=== PATIENT | female | born 1950 | race African-American/Black ===

== ENCOUNTER 2022-11-18 08:28 | Emergency (ER) | payer OTHER, MEDICARE ==
--- OUTSIDE RECORDS SUMMARY | 2022-11-18 08:31 | XMS REPORT | Continuity of Care Document ---
:1950 Author Organization [facility] t Address [address] [place] [address] Care Team Providers Name Role Phone Reid Frye MD Primary Care Physician Ana Luisa Christie Attending Clinician Unavailable RADIOLOGY Attending Clinician Unavailable Radiology Attending Clinician Unavailable Davey Marie Attending Clinician Unavailable Lorenzo MCNULTY, Everett Gilliland Attending Clinician Ana Luisa Christie Admitting Clinician Unavailable JOMAR CONRAD Admitting Clinician Unavailable Physician, No Primary or Family Admitting Clinician UnavailANA LUISA Ponce Admitting Clinician Unavailable Payers Payer Name Policy Type Policy Number Effective Date Expiration Date S ource MEDICARE PART A \T\ [id number] 2014 B 00:00:00 [facility] [id number] 2018 MEDICARE SUPPLEMENT 00:00:00 Problems Condition Condition Condition Status Onset Resolution Last Treating Co mments Source Name Details Category Date Date Treatment Clinician Date Abdominal Abdominal Disease Active 2017-06 [facility] pain pain 0 [facility] 00:00: Hospita 00 l Acute Acute Disease Active 2018-1 Methodi cholecysti cholecysti 0-29 st tis tis 00:00: Hospita 00 l Allergies, Adverse Reactions, Alerts Allergy Allergy Status Severity Reaction(s) Onset Inactive Treating Comm ents Source Name Type Date Date Clinician hydrocod DA Active [facility] VOMITING [facility] one 4-19 Clear 00:00: Johnson 00 [facility] No Known DA Active U 2013-06 [facility] Allergie 07-05 Clear s 00:00: Johnson 00 [facility] NO KNOWN Drug Active Univers ALLERGIE Class ity of S [facility] Social History Social Habit Start Date Stop Date Quantity Comments Source Gender identity [facility] Sexual orientation [facility] History of Social 2022-09-14 2022-09-[address] function 00:00:00 00:00:00 Hospital Alcohol intake 2021-05-03 2021-05-03 Current drinker [facility]o dist 00:00:00 00:00:00 of [facility] (finding) Tobacco use and 2018-04-08 2018-04-08 Smokeless [facility] 00:00:00 00:00:00 tobacco non-user Hospital Sex Assigned At [birth year] [facility] 00:00:00 00:[facility]:00 Hospital Smoking Status Start Date Stop Date Source Tobacco smoking consumption [facility] Never smoked tobacco [facility] Medications Ordered Filled Start Stop Current Ordering Indication Dosage Frequency Signature Comments Components Source Medication Medication Date Date Medication? Clinician (SIG) Name Name naproxen 2020-06 No 500mg Q.5D Take 1 Metho di (NAPROSYN) 07-[address] 500 MG 00:00: 05:59 (500 mg Hospita tablet 00 :00 total) by l mouth 2 (two) times a day with meals for 30 doses. naproxen 2020-06 No 500mg Q.5D Take 1 Metho di (NAPROSYN) 07-[address] 500 MG 00:00: 05:59 (500 mg Hospita tablet 00 :00 total) by l mouth 2 (two) times a day with meals for 30 doses. predniSONE 2017-06 Yes 3mg QD Take 3 mg Me [facility]odi (DELTASONE) 06-[address] 5 mg tablet 12:05: daily. Hosp jah 27 l hydroxychlo 2017-06 Yes 400mg QD Take 400 M ethodi roquine 1-[address] (PLAQUENIL) 12:05: mouth Hospi ta 200 mg 27 daily. l tablet ergocalcife 2017-06 Yes [id number] Q7D Take Meth naina rol 1-05 50,000 [address] (VITAMIN 12:05: Units by Hospi ta D2) 50,000 27 mouth once l unit a week. capsule metFORMIN 2017-06 Yes 1000mg QD Take 1,000 Methodi (GLUCOPHAGE 1-[address] ) 1,000 mg 12:05: mouth Hospit a tablet 27 daily with l breakfast. inFLIXimab 2017-06 Yes Infuse Metho di (REMICADE) 1-[address] 100 mg 12:05: venous Hospita injection 27 catheter. l Every 8 week had on 03/28/2018 predniSONE 2017-06 Yes 3mg QD Take 3 mg Me thodi (DELTASONE) 1-[address] 5 mg tablet 12:05: daily. Hosp jah 27 l hydroxychlo 2017-06 Yes 400mg QD Take 400 M ethodi roquine 1-[address] (PLAQUENIL) 12:05: mouth Hospi ta 200 mg 27 daily. l tablet ergocalcife 2017-06 Yes [id number] Q7D Take Meth naina rol 1-05 50,000 st (VITAMIN 12:05: Units by Hospi ta D2) 50,000 27 mouth once l unit a week. capsule metFORMIN 2017-06 Yes 1000mg QD Take 1,000 Methodi (GLUCOPHAGE 1-[address] ) 1,000 mg 12:05: mouth Hospit a tablet 27 daily with l breakfast. inFLIXimab 2017-06 Yes Infuse Metho di (REMICADE) 1-[address] 100 mg 12:05: venous Hospita injection 27 catheter. l Every 8 week had on 03/28/2018 predniSONE 2017-06 Yes 3mg QD Take 3 mg Me thodi (DELTASONE) 1-[address] 5 mg tablet 12:05: daily. Hosp jah 27 l hydroxychlo 2017-06 Yes 400mg QD Take 400 M ethodi roquine 1-[address] (PLAQUENIL) 12:05: mouth Hospi ta 200 mg 27 daily. l tablet ergocalcife 2017-06 Yes [id number] Q7D Take Meth naina rol 1-05 50,000 st (VITAMIN 12:05: Units by Hospi ta D2) 50,000 27 mouth once l unit a week. capsule metFORMIN 2017-06 Yes 1000mg QD Take 1,000 Methodi (GLUCOPHAGE 1-[address] ) 1,000 mg 12:05: mouth Hospit a tablet 27 daily with l breakfast. inFLIXimab 2017-06 Yes Infuse Metho di (REMICADE) 1-[address] 100 mg 12:05: venous Hospita injection 27 catheter. l Every 8 week had on 03/28/2018 predniSONE 2017-06 Yes 3mg QD Take 3 mg Me thodi (DELTASONE) 1-[address] 5 mg tablet 12:05: daily. Hosp jah 27 l hydroxychlo 2017-06 Yes 400mg QD Take 400 M ethodi roquine 1-[address] (PLAQUENIL) 12:05: mouth Hospi ta 200 mg 27 daily. l tablet ergocalcife 2017-06 Yes [id number] Q7D Take Meth naina rol 1-05 50,000 st (VITAMIN 12:05: Units by Hospi ta D2) 50,000 27 mouth once l unit a week. capsule metFORMIN 2017-06 Yes 1000mg QD Take 1,000 Methodi (GLUCOPHAGE 1-[address] ) 1,000 mg 12:05: mouth Hospit a tablet 27 daily with l breakfast. inFLIXimab 2017-06 Yes Infuse Metho di (REMICADE) 1-[address] 100 mg 12:05: venous Hospita injection 27 catheter. l Every 8 week had on 03/28/2018 predniSONE 2017-06 Yes 3mg QD Take 3 mg Me thodi (DELTASONE) 1-[address] 5 mg tablet 12:05: daily. Hosp jah 27 l hydroxychlo 2017-06 Yes 400mg QD Take 400 M ethodi roquine 1-[address] (PLAQUENIL) 12:05: mouth Hospi ta 200 mg 27 daily. l tablet ergocalcife 2017-06 Yes [id number] Q7D Take Meth naina rol 1-05 50,000 st (VITAMIN 12:05: Units by Hospi ta D2) 50,000 27 mouth once l unit a week. capsule metFORMIN 2017-06 Yes 1000mg QD Take 1,000 Methodi (GLUCOPHAGE 1-[address] ) 1,000 mg 12:05: mouth Hospit a tablet 27 daily with l breakfast. inFLIXimab 2017-06 Yes Infuse Metho di (REMICADE) 1-[address] 100 mg 12:05: venous Hospita injection 27 catheter. l Every 8 week had on 03/28/2018 predniSONE 2017-06 Yes 3mg QD Take 3 mg Me thodi (DELTASONE) 1-[address] 5 mg tablet 12:05: daily. Hosp jah 27 l hydroxychlo 2017-06 Yes 400mg QD Take 400 M ethodi roquine 1-[address] (PLAQUENIL) 12:05: mouth Hospi ta 200 mg 27 daily. l tablet ergocalcife 2017-06 Yes [id number] Q7D Take Meth naina rol 1-05 50,000 st (VITAMIN 12:05: Units by Hospi ta D2) 50,000 27 mouth once l unit a week. capsule metFORMIN 2017-06 Yes 1000mg QD Take 1,000 Methodi (GLUCOPHAGE 1-[address] ) 1,000 mg 12:05: mouth Hospit a tablet 27 daily with l breakfast. inFLIXimab 2017-06 Yes Infuse Metho di (REMICADE) 1-[address] 100 mg 12:05: venous Hospita injection 27 catheter. l Every 8 week had on 03/28/2018 pioglitazon 2017-06 Yes TK 1 T PO M ethodi e (ACTOS) 0-[address] 15 MG 00:00: Hospita tablet 00 l pioglitazon 2017-06 Yes TK 1 T PO M ethodi e (ACTOS) 0-[address] 15 MG 00:00: Hospita tablet 00 l pioglitazon 2017-06 Yes TK 1 T PO M ethodi e (ACTOS) 0-[address] 15 MG 00:00: Hospita tablet 00 l pioglitazon 2017-06 Yes TK 1 T PO M ethodi e (ACTOS) 0-[address] 15 MG 00:00: Hospita tablet 00 l pioglitazon 2017-06 Yes TK 1 T PO M ethodi e (ACTOS) 0-[address] 15 MG 00:00: Hospita tablet 00 l pioglitazon 2017-06 Yes TK 1 T PO M ethodi e (ACTOS) 0-[address] 15 MG 00:00: Hospita tablet 00 l hydroCHLORO 2017- Yes TK 1 T PO M ethodi thiazide 0-[address] (HYDRODIURI 00:00: Hospit a L) 25 MG 00 l tablet hydroCHLORO 2017- Yes TK 1 T PO M ethodi thiazide 0-[address] (HYDRODIURI 00:00: Hospit a L) 25 MG 00 l tablet hydroCHLORO 2017- Yes TK 1 T PO M ethodi thiazide 0-[address] (HYDRODIURI 00:00: Hospit a L) 25 MG 00 l tablet hydroCHLORO 2017- Yes TK 1 T PO M ethodi thiazide 0-[address] (HYDRODIURI 00:00: Hospit a L) 25 MG 00 l tablet hydroCHLORO 2017-06 Yes TK 1 T PO M ethodi thiazide 0-[address] (HYDRODIURI 00:00: Hospit a L) 25 MG 00 l tablet hydroCHLORO 2017-06 Yes TK 1 T PO M ethodi thiazide 0-[address] (HYDRODIURI 00:00: Hospit a L) 25 MG 00 l tablet amLODIPine 2017-0 Yes TK 1 T PO Me thodi (NORVASC) - ONCE A DAY st 10 mg 00:00: Hospita tablet 00 l amLODIPine 0 Yes TK 1 T PO Me thodi (NORVASC) - ONCE A DAY st 10 mg 00:00: Hospita tablet 00 l amLODIPine 0 Yes TK 1 T PO Me thodi (NORVASC) 9- ONCE A DAY st 10 mg 00:00: Hospita tablet 00 l amLODIPine 0 Yes TK 1 T PO Me thodi (NORVASC) 9-[address] 10 mg 00:00: Hospita tablet 00 l amLODIPine 0 Yes TK 1 T PO Me thodi (NORVASC) 9- ONCE A DAY st 10 mg 00:00: Hospita tablet 00 l amLODIPine 0 Yes TK 1 T PO Me thodi (NORVASC) - ONCE A DAY st 10 mg 00:00: Hospita tablet 00 l valsartan 0 Yes TK 1 T PO Met hodi (DIOVAN) 9-[address] 160 MG 00:00: Hospita tablet 00 l valsartan 2018-0 Yes TK 1 T PO Met hodi (DIOVAN) 02-[address] 160 MG 00:00: Hospita tablet 00 l valsartan Yes TK 1 T PO Met hodi (DIOVAN) 02-[address] 160 MG 00:00: Hospita tablet 00 l valsartan Yes TK 1 T PO Met hodi (DIOVAN) 02-[address] 160 MG 00:00: Hospita tablet 00 l valsartan Yes TK 1 T PO Met hodi (DIOVAN) 02-[address] 160 MG 00:00: Hospita tablet 00 l valsartan Yes TK 1 T PO Met hodi (DIOVAN) 02-[address] 160 MG 00:00: Hospita tablet 00 l Vital Signs Vital Name Observation Time Observation Value Comments Source Systolic blood 2021-05-04 01:45:00 134 mm[Hg] [facility] pressure Diastolic blood 2021-05-04 01:45:00 65 mm[Hg] [facility] pressure Heart rate 2021-05-04 01:45:00 80 /min [facility] Respiratory rate 2021-05-04 01:45:00 18 /min [facility] Oxygen saturation in 2021-05-04 01:45:00 98 /[facility] Arterial blood by Pulse oximetry Body temperature 2021-05-04 01:11:[address] [facility] Body height 2021-05-04 01:11:[address] [facility] Body weight 2021-05-04 01:11:[address] [facility] BMI 2021-05-04 01:11:00 33.07 kg/m2 [facility] Procedures Procedure Date / Time Performed Performing Clinician [facility] e ASSIGNMENT OF BENEFITS 2022-02-14 18:17:01 Doctor Unassigned, No [facility] XR HIP 2-3 VIEWS LEFT 2021-05-04 01:41:32 Everett Ventura Met [facility] Plan of Care Planned Activity Planned Date Details Comments Source Future Scheduled 2022-11-15 [facility] for [facility] Test 20:53:40 malignant neoplasm of colon (procedure) [code = 703194650] Future Scheduled 2022-11-15 [facility] Test 20:53:40 malignant neoplasm of colon (procedure) [code = 040374592] Future Scheduled 2022-11-15 [facility] Test 20:53:40 malignant neoplasm of colon (procedure) [code = 099081767] Future Scheduled 2022-11-15 Hepatitis C screening [facility] Test 20:53:40 (procedure) [code = 466034309] Future Scheduled 2022-11-15 [facility] Test 20:53:40 SCREENING [code = BREAST CANCER SCREENING] Future Scheduled 2022-11-15 [facility] Test 20:53:40 malignant neoplasm of colon (procedure) [code = 628602825] Future Scheduled 2022-11-15 [facility] for [facility] Test 20:53:40 malignant neoplasm of colon (procedure) [code = 205883717] Future Scheduled 2022-11-15 [facility]IN[facility] Test 20:53:40 of 2) [code = SHINGLES VACCINES (1 of 2)] Future Scheduled 2022-11-15 65+ [facility]CCAL [facility] 20:53:40 VACCINE (1 - PCV) [code = 65+ PNEUMOCOCCAL VACCINE (1 - PCV)] Future Scheduled 2022-11-15 COVID-19 VACCINE (4 - [facility] Test 20:53:40 Moderna series) [code = COVID-19 VACCINE (4 - Moderna series)] Future Scheduled 2022-11-15 INFLUENZA VACCINE [facility] Test 20:53:40 [code = INFLUENZA VACCINE] Future Scheduled 2022-11-15 [facility] Test 20:53:40 malignant neoplasm of colon (procedure) [code = 006682583] Future Scheduled 2022-11-15 [facility] Test 20:53:40 malignant neoplasm of colon (procedure) [code = 452018771] Future Scheduled 2022-11-15 [facility] Test 20:53:40 malignant neoplasm of colon (procedure) [code = 471418909] Future Scheduled 2022-11-15 Hepatitis C screening [facility] Test 20:53:40 (procedure) [code = 563554608] Future Scheduled 2022-11-15 [facility] Test 20:53:40 SCREENING [code = BREAST CANCER SCREENING] Future Scheduled 2022-11-15 [facility] Test 20:53:40 malignant neoplasm of colon (procedure) [code = 538704863] Future Scheduled 2022-11-15 [facility] for [facility] Test 20:53:40 malignant neoplasm of colon (procedure) [code = 426038379] Future Scheduled 2022-11-15 SHINGLES VACCINES (1 Met [facility] Hospital Test 20:53:40 of 2) [code = SHINGLES VACCINES (1 of 2)] Future Scheduled 2022-11-15 65+ [facility] VACCINE (1 - PCV) [code = 65+ PNEUMOCOCCAL VACCINE (1 - PCV)] Future Scheduled 2022-11-15 COVID-19 VACCINE (4 - [facility] Test 20:53:40 Moderna series) [code = COVID-19 VACCINE (4 - Moderna series)] Future Scheduled 2022-11-15 INFLUENZA VACCINE [facility] Test 20:53:40 [code = INFLUENZA VACCINE] Future Scheduled 2022-05-25 Hepatitis C screening [facility] Test 06:08:43 (procedure) [code = 414567589] Future Scheduled 2022-05-25 [facility] Test 06:08:43 SCREENING [code = BREAST CANCER SCREENING] Future Scheduled 2022-05-25 COLONOSCOPY SCREENING [facility] Test 06:08:43 [code = COLONOSCOPY SCREENING] Future Scheduled 2022-05-25 SHINGLES VACCINES (1 Met [facility] Test 06:08:43 of 2) [code = SHINGLES VACCINES (1 of 2)] Future Scheduled 2022-05-25 65+ PNEUMOCOCCAL [facility] Hospital Test 06:08:43 VACCINE (1 - PCV) [code = 65+ PNEUMOCOCCAL VACCINE (1 - PCV)] Future Scheduled 2022-05-25 COVID-19 VACCINE (4 - Me [facility] Hospital Test 06:08:43 Booster for Moderna series) [code = COVID-19 VACCINE (4 - Booster for Moderna series)] Future Scheduled 2022-05-25 INFLUENZA VACCINE Method [facility] Hospital Test 06:08:43 [code = INFLUENZA VACCINE] Future Scheduled 2022-05-25 Hepatitis C screening [facility] Test 06:08:43 (procedure) [code = 793066107] Future Scheduled 2022-05-25 BREAST CANCER [facility] Test 06:08:43 SCREENING [code = BREAST CANCER SCREENING] Future Scheduled 2022-05-25 COLONOSCOPY SCREENING [facility] Test 06:08:43 [code = COLONOSCOPY SCREENING] Future Scheduled 2022-05-25 [facility]IN[facility] 06:08:43 of 2) [code = SHINGLES VACCINES (1 of 2)] Future Scheduled 2022-05-25 65+ PNEUMOCOCCAL [facility] Hospital Test 06:08:43 VACCINE (1 - PCV) [code = 65+ PNEUMOCOCCAL VACCINE (1 - PCV)] Future Scheduled 2022-05-25 COVID-19 VACCINE (4 - Me [facility] Hospital Test 06:08:43 Booster for Moderna series) [code = COVID-19 VACCINE (4 - Booster for Moderna series)] Future Scheduled 2022-05-25 INFLUENZA VACCINE Method is Hospital Test 06:08:43 [code = INFLUENZA VACCINE] Future Scheduled 2021-05-31 Hepatitis C screening [facility] Test 13:28:38 (procedure) [code = 486238505] Future Scheduled 2021-05-31 [facility] Test 13:28:38 SCREENING [code = BREAST CANCER SCREENING] Future Scheduled 2021-05-31 COLONOSCOPY SCREENING [facility] Test 13:28:38 [code = COLONOSCOPY SCREENING] Future Scheduled 2021-05-31 SHINGLES [facility]ACCINES (#[facility] Test 13:28:38 [code = SHINGLES VACCINES (#1)] Future Scheduled 2021-05-31 65+ PNEUMOCOCCAL [facility] Hospital Test 13:28:38 VACCINE (1 of 1 - PPSV23) [code = 65+ PNEUMOCOCCAL VACCINE (1 of 1 - PPSV23)] Future Scheduled 2021-05-31 INFLUENZA VACCINE Method is Hospital Test 13:28:38 [code = INFLUENZA VACCINE] Future Scheduled 2021-05-31 Hepatitis C screening [facility] Test 13:28:38 (procedure) [code = 727953678] Future Scheduled 2021-05-31 [facility] 13:28:38 SCREENING [code = BREAST CANCER SCREENING] Future Scheduled 2021-05-31 COLONOSCOPY SCREENING [facility] Test 13:28:38 [code = COLONOSCOPY SCREENING] Future Scheduled 2021-05-31 SHINGLES VACCINES (#1) [facility] Test 13:28:38 [code = SHINGLES VACCINES (#1)] Future Scheduled 2021-05-31 65+ PNEUMOCOCCAL [facility] Hospital Test 13:28:38 VACCINE (1 of 1 - PPSV23) [code = 65+ PNEUMOCOCCAL VACCINE (1 of 1 - PPSV23)] Future Scheduled 2021-05-31 INFLUENZA VACCINE Method ist Hospital Test 13:28:38 [code = INFLUENZA VACCINE] Encounters Start End Encounter Admission Attending Care Care Encounter Source Date/Time Date/Time Type Type Clinicians Facility Department ID 2022-11-16 2022-11-16 Outpatient AVELINO VarelaCL RADI [id number] [facility] 10:09:00 10:09:00 Ana Luisa 31 [facility] 2022-09-07 2022-09-07 Outpatient AVELINO VarelaCL RADI [id number] [facility] 10:24:00 10:24:00 Declan 71 [facility] 2022-08-09 2022-08-09 Outpatient SFA SFA [id number] Taj 11:28:58 11:28:58 0301 F Prashant 2022-02-14 2022-02-14 Outpatient R RADIOLOGY [facility] [id number] Univers 13:17:22 23:59:00 ity [facility] 2022-02-14 2022-02-14 Hospital Radiology [facility] [id number] Univers 13:17:22 23:59:00 [facility] 350.1.13.10 ity [facility] 4.2.7.2.686 [facility] [id number] [place] [address] Branch 2021-09-27 2021-09-27 Emergency EM White[facility] [id number] [facility] 14:16:00 15:12:00 Davey Alcocer [facility] 2021-05-03 2021-05-03 Emergency Lorenzo, 1.2.840.1 [id number] Methodi 18:59:00 20:23:00 Everett Gilliland [address] 3.430.2.7 Hospit a .3.940363 l .8 2021-05-03 2021-05-03 Travel 1.2.840.1 [id number] [id number] Methodi 00:00:00 00:00:[address] 3.430.2.7 0.2.7.3.698 spita .3.053121 084.8 l .8 2021-02-01 2021-02-01 Outpatient FBCOVID FBCOVID [id number] F[facility]OVID 00:00:00 00:00:00 [id number] 2020-10-26 Outpatient MEGHAN Rivas [facility] [id number] [facility] 21:31:36 21:31:36 Declan Alcocer [facility] 2019-08-19 2019-08-19 Outpatient R RADIOLOGY [facility] [id number] Univers 11:14:53 23:59:00 [facility] Results Test Description Test Time Test Comments Results Result Sour e Comments - XR CHEST 2 V 2022-11-16 10:39:00 [facility] : 1950 Sex: F FAX: Ana Luisa Pino MD [phone] [place]: GC St: REG Name: TAMIKO HAGERH Barry Johnson : 1950 Age/S: 72/F [address] [place] [address] Bl Unit #: [id number] Loc: [place] [address] Phys: Ana Luisa Christie MD Acct: [id number] Dis Date: Status: REG CLI PHONE #: [phone] Exam Date: 11/16/2022 1030 FAX #: [phone] Reason: Z11.1, TUBERCULOSIS SCREENING. RHEUMATOID ARTH EXAMS: CPT CODE: [id number] XR CHEST 2 V [id number] Dictation location: U19. CHEST, FRONTAL AND LATERAL VIEWS HISTORY: Z11.1, TUBERCULOSIS SCREENING. RHEUMATOID ARTHRITIS WITH COMPARISON: Chest x-ray 03/14/16. FINDINGS: The lungs are clear without consolidation. No pleural effusion or pneumothorax. The heart size is normal. Mild thoracic spondylosis. IMPRESSION: No evidence of acute cardiopulmonary disease or tuberculosis. at 1039 Reported and signed by: Gilda Mccormick M.D. CC: Declan Christie MD Technologist: Fabiola Nam RT(R) Trnscrd Date/Time/By: 11/16/2022 (1039) : By: [email or web address] Orig Print D/T: S: 11/16/2022 (1113) PAGE 1 Signed Report - XR ANKLE 3 + V 2022-09-07 23:55:00 [facility] J[facility]NSON[facility]: TAMIKO MCARTHUR : 1950 Sex: F FAX: Declan Pino MD [phone] [place]: St: REG Name: CRISTINA MCARTHUR [facility] : 1950 Age/S: 72/F [address] [place] [address] Unit #: [id number] Loc: [place] [address] Phys: Declan Christie MD Acct: [id number] Dis Date: Status: REG CLI PHONE #: [phone] Exam Date: 09/07/20221106 FAX #: [phone] Reason: M25.572, M25.571, RIGHT, LEFT ANKLE PAIN. EXAMS: CPT CODE: [id number] XR ANKLE 3 + [place] [address] EXAM: - XR ANKLE 3 + V BI CLINICAL HISTORY: M25.572, M25.571, RIGHT, LEFT ANKLE PAIN. COMPARISON: None available. TECHNIQUE: Bilateral AP, oblique, and lateral views. LOCATION: H65 FINDINGS: RIGHT Bones: No acute displaced fracture or dislocation identified. Normal marrow density. Joint spaces: Ankle mortise is grossly intact. Midfoot articulations demonstrate dorsal osteophyte formation as detailed on dedicated foot radiographs. Soft tissues: Mild generalized soft tissue swelling surrounding the ankle joint. LEFT Bones: No acute displaced fracture or dislocation identified. Normal marrow density. Joint spaces: Ankle mortise is grossly intact. Midfoot articulations demonstrate dorsal osteophyte formation as detailed on dedicated foot radiographs. Soft tissues: Mild generalized soft tissue swelling surrounding the ankle joint. IMPRESSION: No significant degenerative or erosive changes of the ankle mortise, which appear well aligned bilaterally. Mild bilateral generalized soft tissue swelling noted. Bilateral midfoot polyarticular osteoarthritis, worse on the right. This is detailed on the dedicated foot radiographs. PAGE 1 Signed Report (CONTINUED) FAX: Declan Pino MD [phone] [place]: St: REG Name: A[facility]CRISTINA [facility]Z [facility] Barry Johnson : 1950 Age/S: 72/F [address] [place] [address] Unit #: [id number] Loc: [place] [address] Phys: Declan Christie MD Acct: [id number] Dis Date: Status: REG CLI PHONE #: [phone] Exam Date: 09/07/2022 1107 FAX #: [phone] Reason: M25.572, M25.571, RIGHT, LEFT ANKLE PAIN. EXAMS: CPT CODE: [id number] XR ANKLE 3 + [place] [id number] (Continued) at 4828 Reported and signed by: Basil Marie D.O. CC: Declan Christie MD Technologist: RT Óscar(R) Trnscrd Date/Time/By: 09/07/2022 (6242) : By: [email or web address] Orig Print D/T: S: 09/07/2022 (0238) PAGE 2 Signed Report - XR FOOT 3 + V BI 2022-09-07 23:52:00 [facility] ALEXName: AGOSTO-MADANELISATAMIKO : 1950 Sex: F FAX: Declan Pino MD [phone] [place]: St: REG Name: CRISTINA MCARTHUR [facility] : 1950 Age/S: 72/F [address] [place] [address] Unit #: [id number] Loc: [place] [address] Phys: Declan Christie MD Acct: [id number] Dis Date: Status: REG CLI PHONE #: [phone] Exam Date: 09/07/20221107 FAX #: [phone] Reason: M79.671, M79.672, ALESHIA FOOT PAIN. EXAMS: CPT CODE: [id number] XR FOOT 3 + [place] [address] EXAM: - XR FOOT 3 + V BI CLINICAL HISTORY: M79.671, M79.672, ALESHIA FOOT PAIN. COMPARISON: None available. TECHNIQUE: Bilateral AP, oblique, and lateral views. LOCATION: H65 FINDINGS: RIGHT Bones: No acute displaced fracture or dislocation identified. Normal marrow density. Joint spaces: Hallux valgus deformity. There is mild joint space narrowing and minimal marginal osteophyte formation throughout the interphalangeal joints. No periarticular erosions. Dorsal osteophyte formation noted at the talonavicular, naviculocuneiform, and at the tarsometatarsal joints. Soft tissues: Unremarkable. LEFT Bones: No acute displaced fracture or dislocation identified. Normal marrow density. Joint spaces: Normal alignment. Mild joint space narrowing and marginal osteophyte formation throughout the interphalangeal joints. No periarticular erosions. Dorsal osteophyte formation noted at the naviculocuneiform and tarsometatarsal joints. Soft tissues: Unremarkable. IMPRESSION: Hallux valgus deformity on the right. Mild bilateral polyarticular osteoarthritis, worse on the right. PAGE 1 Signed Report (CONTINUED) FAX: Declan Pino MD [phone] [place]: St: REG Name: CRISTINA MCARTHUR [facility] : 1950 Age/S: 72/F [address] [place] [address] Bl Unit #: [id number] Loc: [place] [address] Phys: Declan Christie MD Acct: [id number] Dis Date: Status: REG CLI PHONE #: [phone] Exam Date: 09/07/2022 1108 FAX #: [phone] Reason: M79.671, M79.672, ALESHIA FOOT PAIN. EXAMS: CPT CODE: [id number] XR FOOT 3 [place] [id number] (Continued) at 2352 Reported and signed by: Basil Marie D.O. CC: Declan Christie MD Technologist: RT Óscar(R) Trnscrd Date/Time/By: 09/07/2022 (5672) : By: [email or web address] Orig Print D/T: S: 09/07/2022 (0531) PAGE 2 Signed Report HEMOGLOBIN A1c 2021-10-04 02:46:37 Test Item Value Reference Range Interpretation Comme nts HEMOGLOBIN A1c (test code = 6.7 % 4.2-5.6 H [employer] 11056) GUIDELINES FOR HGB A1C: PREDIABETES/INC REASED RISK . . . . . . . 5.7-6.4% DIAGNO SIS OF DIABETES . . . . . . . . . >=6.5% WITH CONFIRMATION OR APPROPRIATE SYM PTOMS NOTE: ASSAY MAY BE AFFECTED BY HEM OGLOBINOPATHIES (SICKLE CELL ANEMIA, S- C DISEASE, OTHERS) OR ARTIFICIALLY LO WERED BY DECREASED RED CELL SURVIVAL ( HEMOLYTIC ANEMIAS, BLOOD LOSS, ETC.). CO NSIDER ALTERNATE TESTING OR LABORATORY C ONSULTATION. UNLESS OTHERWISE INDIC ATED, ALL TESTING PERFORMED [facility]. [address] [place] [address] [facility] DIRECTOR: LADARIUS HOYT M.D. CLIA NUMBER [id number] [facility] [place] [id number] - XR CHEST 2 [id number] 22:10:00 [facility] : 1950 Sex: F FAX: Declan Pino MD [phone] [place]: St: REG Name: TAMIKO MCARTHUR [facility] : 1950 Age/S: 70/F [address] [place] [address] Unit #: [id number] Loc: [place] [address] Phys: Delcan Christie MD Acct: [id number] Dis Date: Status: REG CLI PHONE #: [phone] Exam Date: 10/26/20202158 FAX #: [phone] Reason: ENCOUNTER FOR SCREENING FOR RESPIRATORY TUBERCU EXAMS: CPT CODE: [id number] XR CHEST 2 V 32321 Chest, 2 views dated 10/26/2020. HISTORY: Screening for respiratory tuberculosis. No prior studies are available for comparison. The heart is normal in size. Atherosclerotic calcification is identified in the aortic arch. The lungs appear clear of acute disease. Evidence of prior granulomatous infection is noted. The pulmonary vasculature appears normal in caliber. No acute pleural space abnormalities are identified. Note is made of a compression deformity of the anterior superior endplate of L1. IMPRESSION: 1. No radiographic evidence of acute cardiopulmonary disease. SL:131 at 2210 Reported and signed by: Ez Garza M.D. CC: Declan Christie MD Technologist: RT Dorothy(R) Trnscrd Date/Time/By: 10/26/2020 (2209) : By: [email or web address] Orig Print D/T: S: 10/26/2020 (2213) PAGE 1 Signed Report Notes Date/Time Note Provider Source 2021-09-27 14:31:00-00:[address] [facility] [place] [place] ([facility]) EMERGENCY PROVIDER REPORT REPORT#:[id number] REPORT STATUS: Signed DATE:09/27/21 TIME: 1430 PATIENT: TAMIKO MCARTHUR UNIT #: [id number] ROOM/BED: AGE: 71 SEX: F PCP PHYS: Declan Christie MD SERVICE AUTHOR: Davey Marie MD * ALL edits or amendments must be made on the el [employer]/computer document * HPI-Rash/Abscess/Cellulitis General Confirmed Patient Yes Patient Type New patient Initial Greet Date/Time 09/27/21 1416 Presentation Chief Complaint Rash, Red area, Sore, Tender/swo llen area Hx Obtained From Patient Onset Occurred Days ago (3) Progression since Onset Gradually improving Location Head/face Quality Painful Severity: Onset Mild Severity: Current Mild Free Text HPI Notes Free Text HPI Notes 71-year-old female patient with past medical his tory as recorded in EMR ( rheumatoid arthritis, border line diabetes) reports to the freestanding emergency department complaining of 2 to 3 days of a painf ul tingling rash that erupted like blisters and are groupe d on the left cheek and face near the corner of the left eye. Patient denies any eye blurring or hannah n or soreness in the eye. Patient reports that she is not vaccinat ed for shingles. Denies fever, chills, chest pain, shortness of breath, vision changes. Review of Systems ROS Statements All systems rev neg except as marked. Focused Review of Systems Skin Reports: Rash. Past Medical History - Adult Stated Complaint RASH ON FACE Allergies Coded Allergies: hydrocodone (Mild, VOMITING 09/27/21) Past Medical History: Reports: Arthritis, Diabetes mellitus. Physical Exam Vital Signs Vital Signs First Documented: Result Date Time Pulse Ox 96 09/27 1420 B/P 152/87 09/27 1420 B/P Mean 108 09/27 1420 O2 Delivery Room air 09/27 1420 Temp 36.8 09/27 1420 Pulse 92 09/27 1420 Resp 20 09/27 1420 Last Documented: Result Date Time Pulse Ox 98 09/27 1508 B/P 148/87 09/27 1508 B/P Mean 107 09/27 1508 O2 Delivery Room air 09/27 1508 Pulse 89 09/27 1508 Resp 18 09/27 1508 Temp 36.8 09/27 1420 Review of Vital Signs Reviewed Focused PE General/Const General/Const Awake, Alert, Well appearing Ears/Nose/Throat Ears/Nose/Throat Airway patent, Mucous membrane s moist, Pharynx NL Resp/Chest Respiratory/Chest Atraumatic, No respiratory di stress Cardiovascular Cardiovascular Heart rate NL MS Upper Extrem Upper Extremity/MS Inspection NL, No swelling, Non-tender, No erythema MS Lower Extrem Lower Ext/Pelvis/MS Inspection NL, No swelling, Non-tender, No erythema, Vascular intact, No edema Skin Text/Dict Notes Patient has small excoriated grouped lesions on the left side of her face in the V2 distribution of the trigeminal nerve. These lesions do not appear to affect the eye. There is no signs o f secondary infection and no drainage at this time. All lesions appear advanced and healing at this time. Neurologic Neurologic Oriented X3, Speech NL, No motor def icits, No sensory deficits Re-Evaluation MDM ED Course Medication(s) Ordered Medication(s) Ordered: Anti-Infective Agents Sig/Ai Start time Last Medication Dose Route Stop Time Status Admin Valacyclovir HCl 1,000 MG X1ED STA 09/27 1430 DC 09/27 PO 09/27 1431 1456 Eye, Ear, Nose And Throat (Een Sig/Ai Start time Last Medication Dose Route Stop Time Status Admin Dexamethasone Sodium 10 MG X1ED STA 09/27 1430 DC 09/27 Phosphate IM 09/27 1431 1456 Patient Discharge Departure Vital Signs/Condition Vital Signs First Documented: Result Date Time Pulse Ox 96 09/27 1420 B/P 152/87 09/27 1420 B/P Mean 108 09/27 1420 O2 Delivery Room air 09/27 1420 Temp 36.8 09/27 1420 Pulse 92 09/27 1420 Resp 20 09/27 1420 Last Documented: Result Date Time Pulse Ox 98 09/27 1508 B/P 148/87 09/27 1508 B/P Mean 107 09/27 1508 O2 Delivery Room air 09/27 1508 Pulse 89 09/27 1508 Resp 18 09/27 1508 Temp 36.8 09/27 1420 All vital signs available at the time of this en try have been reviewed. Clinical Impression Clinical Impression Primary Impression: Trigeminal herpes zoster Disposition Decision Discharge )( Discharged to Home Yes )( Time 1502 )( Date 09/27/21 Discharge/Care Plan Counseled Regarding Diagnosi s, Prescriptions, Need for follow-up, When to return to ED (Auto) Prescriptions Current Visit Scripts valACYclovir (VALTREX) 1,000 MG PO Q8H valACYclovir (VALTREX) 1,000 MG PO Q8H #21 TABS X7 DAYS predniSONE 50 MG PO DAILY predniSONE 50 MG PO DAILY #5 TABS ONDANSETRON ODT (ZOFRAN ODT) 4 MG PO Q6H PRN PRN NAUSEA/VOMITING ONDANSETRON ODT (ZOFRAN ODT) 4 MG PO Q6H PRN CA N NAUSEA/VOMITING #15 TABS ACETAMINOPHEN/CODEINE (TYLENOL WITH CODE INE #3 300/30 MG) 1 TAB PO Q4H PRN PRN ACUTE PAIN ACETAMINOPHEN/CODEINE (TYLENOL WITH CODEINE #3 300/30 MG) 1 TAB PO Q4H PRN PRN ACUTE PAIN #15 TABS Patient Instructions ED Shingles (Herpes Zoster) Referrals Provider Referral: Misha Noel MD Follow-Up: As Needed Address: [address] [place] [address] [address] [place] [address] Provider Group: [facility] Follow-Up: As Needed Notes: follow up with primary care. Return if worse. [address] if vision effected or may return Discharge Note I have spoken with the patie nt and/or caregivers. I have explained the patient's condition, diagnoses and romi atment plan based on the information available to me at this time. I have answered the patient's and/ or caregiver's questions and addressed any concerns. The patient and/or careg ravin have as good an understanding of the patient 's diagnosis, condition and treatment plan as can be expected at this point. The vital signs have bee n stable. The patient's condition is stable and appr opriate for discharge from the emergency department. The patient will pursue further outpatient evalu ation with the primary care physician or other designated or consulting phys ician as outlined in the discharge instructions. The patient and/or caregivers are agreeable to this plan of care and follow-up instructions have been exp lained in detail. The patient and/or caregivers have received these instructio ns in written format and have expressed an understanding of the discharge inst ructions. The patient and/or caregivers are aware that any significant change in condition or worsening of symptoms should prompt an immediate return to [facility] or the closest emergency department or a call to 911. Electronically Signed by Davey Marie MD on 0 09/27/21 at 2017 RPT #:[id number] END OF REPORT
[2022-11-18] MEDS ORDERED: KETOROLAC 30 MG/ML INJ ONE (09:41)
[2022-11-18] MEDS ORDERED: DIAZEPAM 2 MG TABLET ONE (09:41)
--- NOTE | 2022-11-18 09:42 | RAD REPORT ---
EXAM DESCRIPTION: CT - Thorax Wo Con - 11/18/2022 9:26 am CLINICAL HISTORY: fall on tub COMPARISON: No comparisons FINDINGS: Chest Wall: No suspicious thyroid nodules or pathologic lymphadenopathy. Lungs: No acute abnormality. Pleura: No significant effusions or pneumothorax. Mediastinum/vincent: No pathologic lymphadenopathy. Pulmonary arteries/Aorta: Limited evaluation without contrast. No aortic aneurysm. Heart: No significant pericardial effusion. Normal heart size. Aortic valve calcifications . Upper abdomen: No acute abnormality. Bones: Nondisplaced left fourth, fifth, sixth rib fractures. All CT scans are performed using dose optimization technique as appropriate and may include automated exposure control or mA/KV adjustment according to patient size. IMPRESSION: Nondisplaced left fourth through sixth rib fractures. No underlying pneumothorax or othe r significant trauma identified.
--- NOTE | 2022-11-18 10:23 | ER ---
Nurse's Notes [facility] Name: Gali Rockwell Age: 72 yrs Sex: Female : 1950 Arrival Date: 11/18/2022 Time: 08:28 Bed 11 Private MD: Diagnosis: Fall on same level from slipping, tripping and stumbling with subsequent striking against object;Multiple fractures of ribs, left side-4th, 5th, \\T\\ 6th Presentation: 11/18 08:58 Chief complaint: Patient states: slipped and fell in the bathtub this morning, hitting aa5 her left side on the bathtub. Coronavirus screen: At this time, the client does not indicate any symptoms associated with coronavirus-19. Ebola Screen: Patient denies travel to an Ebola-affected area in the 21 days before illness onset. Initial Sepsis Screen: Does the patient meet any 2 criteria? No. Patient's initial sepsis screen is negative. Does the patient have a suspected source of infection? No. Patient's initial sepsis screen is negative. Risk Assessment: Do you want to hurt yourself or someone else? Patient reports no desire to harm self or others. Onset of symptoms was November 18, 2022. 08:58 Acuity: HEATH 4 aa5 08:58 Method Of Arrival: Wheelchair aa5 Historical: - Allergies: 08:55 No Known Allergies; aa5 - Home Meds: 09:57 Remicade 100 mg intravenous Recon Soln EVERY 8 WEEK [Active]; valsartan 160 mg oral bp tablet daily [Active]; omeprazole 40 mg Oral capsule,delayed release (e.c.) daily [Active]; amlodipine 10 mg tablet daily [Active]; hydrochlorothiazide 25 mg Oral tablet daily [Active]; hydroxychloroquine 200 mg oral tablet daily [Active]; hydroxyzine pamoate 25 mg Oral capsule [Active]; Ozempic 1 mg/dose (4 mg/3 mL) subcutaneous Pen Injector every week [Active]; - PMHx: 08:55 Hypertensive disorder; Diabetes mellitus; aa5 10:00 Rheumatoid arthritis; bp - Immunization history:: Adult Immunizations unknown. - Social history:: Smoking status: Patient denies any tobacco usage or history of. Assessment: 09:10 Reassessment: Pt was given crackers to eat before medication administration to prevent aa5 upset stomach. Pt states she did not eat breakfast. . Vital Signs: 08:58 BP 139 / 79; Pulse 70; Resp 18 S; Temp 98.4(TE); Pulse Ox 99% on R/A; Weight 78.93 kg aa5 (R); Height 5 ft. 1 in. (R); 08:58 Body Mass Index 32.88 (78.93 kg, 154.94 cm) aa5 ED Course: 08:29 Patient arrived in ED. ts1 08:38 Jonh Martino MD is Attending Physician. rn 08:44 [facility] snw 08:55 Arm band placed on. aa5 08:55 Patient has correct armband on for positive identification. Bed in low position. Call aa5 light in reach. Side rails up X 1. Adult w/ patient. 08:59 Triage completed. aa5 09:28 CT Chest Wo Con In Process Unspecified. EDMS 10:44 No provider procedures requiring assistance completed. Patient did not have IV access aa5 during this emergency room visit. Administered Medications: 09:10 Not Given (Patient Refused; pt states "it's too harsh on my stomach"): aa5 HYDROcodone-acetaminophen PO 5 mg-325 mg 1 tabs PO once 09:38 Drug: Diazepam PO 2 mg Route: PO; aa5 09:38 Drug: Ketorolac IM 15 mg Route: IM; Site: right gluteus; aa5 Outcome: 10:22 Discharge ordered by . snw 10:44 Discharged to home via wheelchair, with family. aa5 10:44 Condition: stable 10:44 Discharge instructions given to patient, Instructed on discharge instructions, follow up and referral plans. medication usage, Demonstrated understanding of instructions, follow-up care, medications, Prescriptions given X 2. 10:45 Patient left the ED. aa5 Signatures: Dispatcher [employer] EDMS Nasima Arana FNP-C [employer] WORKER-[employer] Jonh Martino MD MD rn Calderon, Audri, RN RN aa5 Hao Sood RN RN Juani Jonse, BRIAN PAS ts1
--- NOTE | 2022-11-18 10:23 | EDPHYS ---
Physician Documentation [facility] Name: Gali Rockwell Age: 72 yrs Sex: Female : 1950 Arrival Date: 11/18/2022 Time: 08:28 Bed 11 Private MD: ED Physician Jonh Martino HPI: 11/18 08:56 This 72 yrs old Black Female presents to ER via Unassigned with complaints of Fall snw Injury. 08:56 Details of fall: The patient fell from an upright position, while standing. Onset: The snw symptoms/episode began/occurred suddenly, just prior to arrival. Associated injuries: The patient sustained injury to the chest, specifically the anterior aspect of left upper chest, contusion, tenderness. Severity of symptoms: At their worst the symptoms were moderate. The patient has not experienced similar symptoms in the past. It is unknown whether or not the patient has recently seen a physician. no syncope, denies head injury, slipped. Historical: - Allergies: 08:55 No Known Allergies; aa5 - Home Meds: 09:57 Remicade 100 mg intravenous Recon Soln EVERY 8 WEEK [Active]; valsartan 160 mg oral bp tablet daily [Active]; omeprazole 40 mg Oral capsule,delayed release (e.c.) daily [Active]; amlodipine 10 mg tablet daily [Active]; hydrochlorothiazide 25 mg Oral tablet daily [Active]; hydroxychloroquine 200 mg oral tablet daily [Active]; hydroxyzine pamoate 25 mg Oral capsule [Active]; Ozempic 1 mg/dose (4 mg/3 mL) subcutaneous Pen Injector every week [Active]; - PMHx: 08:55 Hypertensive disorder; Diabetes mellitus; aa5 10:00 Rheumatoid arthritis; bp - Immunization history:: Adult Immunizations unknown. - Social history:: Smoking status: Patient denies any tobacco usage or history of. ROS: 08:55 Constitutional: Negative for fever, chills, and weight loss, Eyes: Negative for injury, snw pain, redness, and discharge, ENT: Negative for injury, pain, and discharge, Neck: Negative for injury, pain, and swelling, Respiratory: Negative for shortness of breath, cough, wheezing, and pleuritic chest pain, Abdomen/GI: Negative for abdominal pain, nausea, vomiting, diarrhea, and constipation, Back: Negative for injury and pain, : Negative for injury, bleeding, discharge, and swelling, MS/Extremity: Negative for injury and deformity, Skin: Negative for injury, rash, and discoloration, Neuro: Negative for headache, weakness, numbness, tingling, and seizure, Psych: Negative for depression, anxiety, suicide ideation, homicidal ideation, and hallucinations. 08:55 Cardiovascular: Positive for chest pain, with movement, of the anterior aspect of left upper chest. Exam: 08:54 Constitutional: This is a well developed, well nourished patient who is awake, alert, snw and in no acute distress. Head/Face: Normocephalic, atraumatic. Eyes: Pupils equal round and reactive to light, extra-ocular motions intact. Lids and lashes normal. Conjunctiva and sclera are non-icteric and not injected. Cornea within normal limits. Periorbital areas with no swelling, redness, or edema. ENT: Nares patent. No nasal discharge, no septal abnormalities noted. Tympanic membranes are normal and external auditory canals are clear. Oropharynx with no redness, swelling, or masses, exudates, or evidence of obstruction, uvula midline. Mucous membranes moist. Neck: Trachea midline, no thyromegaly or masses palpated, and no cervical lymphadenopathy. Supple, full range of motion without nuchal rigidity, or vertebral point tenderness. No Meningismus. Cardiovascular: Regular rate and rhythm with a normal S1 and S2. No gallops or rubs. +murmur. Normal PMI, no JVD. No pulse deficits. Respiratory: Lungs have equal breath sounds bilaterally, clear to auscultation and percussion. No rales, rhonchi or wheezes noted. No increased work of breathing, no retractions or nasal flaring. Abdomen/GI: Soft, non-tender, with normal bowel sounds. No distension or tympany. No guarding or rebound. No evidence of tenderness throughout. Back: No spinal tenderness. No costovertebral tenderness. Full range of motion. Skin: Warm, dry with normal turgor. Normal color with no rashes, no lesions, and no evidence of cellulitis. MS/ Extremity: Pulses equal, no cyanosis. Neurovascular intact. Full, normal range of motion. Neuro: Awake and alert, GCS 15, oriented to person, place, time, and situation. Cranial nerves II-XII grossly intact. Motor strength 5/5 in all extremities. Sensory grossly intact. Cerebellar exam normal. Normal gait. Psych: Awake, alert, with orientation to person, place and time. Behavior, mood, and affect are within normal limits. 08:54 Chest/axilla: Inspection: normal, Palpation: crepitus, is not appreciated, tenderness, that is moderate, of the anterior aspect of left upper chest. Vital Signs: 08:58 BP 139 / 79; Pulse 70; Resp 18 S; Temp 98.4(TE); Pulse Ox 99% on R/A; Weight 78.93 kg aa5 (R); Height 5 ft. 1 in. (R); 08:58 Body Mass Index 32.88 (78.93 kg, 154.94 cm) aa5 MDM: 08:38 Patient medically screened. rn 08:55 Differential diagnosis: closed head injury, contusion, fracture, strain. Data reviewed: snw vital signs, nurses notes. I considered the following discharge prescriptions or medication management in the emergency department Medications were administered in the Emergency Department. See AUG. 10:21 Counseling: I had a detailed discussion with the patient and/or guardian regarding: the snw historical points, exam findings, and any diagnostic results supporting the discharge/admit diagnosis, the presence of at least one elevated blood pressure reading (>120/80) during this emergency department visit, radiology results, the need for outpatient follow up, for definitive care, to return to the emergency department if symptoms worsen or persist or if there are any questions or concerns that arise at home. Special discussion: Based on the patient's history, exam, and Dx evaluation, there is no indication for emergent intervention or inpatient Tx. It is understood by the patient/guardian that if the Sx's persist or worsen they need to return immediately for re-evaluation. Based on the history and exam findings, there is no indication for further emergent testing or inpatient evaluation. I discussed with the patient/guardian the need to see the primary care provider for further evaluation of the symptoms. 11/18 08:54 Order name: CT Chest Wo Con; Complete Time: 09:43 snw 11/18 08:58 Order name: INCENTIVE SPIROMETRY snw Administered Medications: 09: Not Given (Patient Refused; pt states "it's too harsh on my stomach"): aa5 HYDROcodone-acetaminophen PO 5 mg-325 mg 1 tabs PO once 09:38 Drug: Diazepam PO 2 mg Route: PO; aa5 09:38 Drug: Ketorolac IM 15 mg Route: IM; Site: right gluteus; aa5 Disposition: 13:05 Co-signature as Attending Physician, Jonh Martino MD I reviewed the patient's care rn provided by the Advanced Practice Provider and agree with the diagnosis and treatment plan. Disposition Summary: 11/18/22 10:22 Discharge Ordered Location: Home snw Condition: Stable snw Diagnosis - Fall on same level from slipping, tripping and stumbling with subsequent striking snw against object - Multiple fractures of ribs, left side - 4th, 5th, \\T\\ 6th(11/18/22 10:23) snw Followup: snw - With: Emergency Department - When: As needed - Reason: Worsening of condition Followup: snw - With: Private Physician - When: 2 - 3 days - Reason: Recheck today's complaints, Continuance of care, Re-evaluation by your physician Discharge Instructions: - Discharge Summary Sheet snw - Chest Contusion, Adult snw - Head Injury, Adult snw - Fall Prevention in the Home, Adult snw - Rib Fracture snw - How to Use an Incentive Spirometer snw - Incentive Spirometer Record snw Forms: - Medication Reconciliation Form snw - Thank You Letter snw - Antibiotic Education snw - Prescription Opioid Use snw - Work release form aa5 Prescriptions: - Mobic 7.5 mg Oral Tablet - take 1 tablet by ORAL route once daily take with food; 20 tablet; Refills: 0, snw Product Selection Permitted - orphenadrine citrate 100 mg Oral Tablet Sustained Release - take 1 tablet by ORAL route 2 times per day As needed; 20 tablet; Refills: 0, snw Product Selection Permitted Signatures: Dispatcher [employer] EDMS Nasima Arana, [facility] ACCOUNT MANAGER-[facility] Jonh Martino MD MD rn Calderon, Audri, RN RN aa5 Hao Sood RN RN bp Corrections: (The following items were deleted from the chart) 08:56 08:54 Constitutional: This is a well developed, well nourished patient who is awake, snw alert, and in no acute distress. Head/Face: Normocephalic, atraumatic. Eyes: Pupils equal round and reactive to light, extra-ocular motions intact. Lids and lashes normal. Conjunctiva and sclera are non-icteric and not injected. Cornea within normal limits. Periorbital areas with no swelling, redness, or edema. ENT: Nares patent. No nasal discharge, no septal abnormalities noted. Tympanic membranes are normal and external auditory canals are clear. Oropharynx with no redness, swelling, or masses, exudates, or evidence of obstruction, uvula midline. Mucous membranes moist. Neck: Trachea midline, no thyromegaly or masses palpated, and no cervical lymphadenopathy. Supple, full range of motion without nuchal rigidity, or vertebral point tenderness. No Meningismus. Cardiovascular: Regular rate and rhythm with a normal S1 and S2. No gallops, murmurs, or rubs. Normal PMI, no JVD. No pulse deficits. Respiratory: Lungs have equal breath sounds bilaterally, clear to auscultation and percussion. No rales, rhonchi or wheezes noted. No increased work of breathing, no retractions or nasal flaring. Abdomen/GI: Soft, non-tender, with normal bowel sounds. No distension or tympany. No guarding or rebound. No evidence of tenderness throughout. Back: No spinal tenderness. No costovertebral tenderness. Full range of motion. Skin: Warm, dry with normal turgor. Normal color with no rashes, no lesions, and no evidence of cellulitis. MS/ Extremity: Pulses equal, no cyanosis. Neurovascular intact. Full, normal range of motion. Neuro: Awake and alert, GCS 15, oriented to person, place, time, and situation. Cranial nerves II-XII grossly intact. Motor strength 5/5 in all extremities. Sensory grossly intact. Cerebellar exam normal. Normal gait. Psych: Awake, alert, with orientation to person, place and time. Behavior, mood, and affect are within normal limits. snw 10:23 10:22 Multiple fractures of ribs, left side - 6th, 7th, \\T\\ 8th snw snw
[2022-11-18 10:49] VITALS: BP 139/79; TEMP 98.4; O2SAT 99
== END 2022-11-18 10:45 | disposition home or self-care (01) ==
LOC: ER 08:28
DX: S22.42XA Multiple fractures of ribs, left side, initial encounter for closed fracture (principal); W01.10XA Fall on same level from slipping, tripping and stumbling with subsequent striking against unspecified object, initial encounter; E11.9 Type 2 diabetes mellitus without complications; I10 Essential (primary) hypertension
CPT/HCPCS: 71250; 96372; 99284